=== PATIENT | female | born 1985 | race Caucasian/White ===

== ENCOUNTER 2018-08-03 08:24 | Emergency (ER) | payer OTHER ==
--- NOTE | 2018-08-03 08:35 | EDPHY ---
H & P Time Seen by Provider: 08/03/18 08:33 HPI/ROS: CHIEF COMPLAINT: Dizziness HISTORY OF PRESENT ILLNESS: Patient started having symptoms 2 days ago when she was sitting on a piano bench. She started feeling that it was"like being on a ship"with a sensation of movement and she sat there until it went away. She had 3-4 episodes yesterday and then 1 last night. Each episode lasted for minutes and she was able to remain still and it resolved. Not associated with nausea or vomiting or visual symptoms or neck pain or headache. Symptoms moderate at the time but not present currently. Not definitely better worse with movement. She also describes an intermittent chest tightness over the past 2 weeks which is mobile, sometimes left, symptoms right, sometimes in the center. Lasts for minutes and is not exertional, not pleuritic, not associated with cough or hemoptysis or fever or chills or leg swelling. REVIEW OF SYSTEMS: Eye: Yesterday she had an episode of floaters in her eye when walking the dog but no double vision and no blurry vision today. ENT: no sore throat or earache or decreased hearing Cardiac: HPI Pulmonary: no cough or SOB Abdomen: no vomiting, diarrhea, abdominal pain Musculoskeletal: no back pain or neck pain Skin: no rash Neuro: no headache Constitutional: no fever : no urinary symptoms A comprehensive 10 point review of systems is otherwise negative aside from elements mentioned in the history of present illness. PAST MEDICAL HISTORY: IUD, no hormone use, no recent surgery. Family history: Negative for venous thromboembolism or coronary artery disease. Social history: Tobacco smoker. No drugs. Recent travel to [place] by car a week and half ago. General Appearance: Alert and conversant, cooperative. Eyes: No scleral icterus. Pupils equal reactive extraocular motion intact. ENT, Mouth: Normal mucous membranes. Normal tympanic membranes. Respiratory: Normal respiratory effort, breath sounds equal, lungs are clear to auscultation. Cardiovascular: Regular rate and rhythm. No carotid bruit. Gastrointestinal: Abdomen is soft and non tender. Neurological: Alert, face symmetric, normal motor and sensory in extremities. Ambulatory without ataxia. [id number] normal bilaterally and no pronator drift, fluent speech. Skin: Warm and dry, no rashes. Musculoskeletal: No peripheral edema. No calf tenderness. Symmetric. Psychiatric: Not agitated. Emergency Department course/MDM: PERC negative for pulmonary embolism. Much more likely to be peripheral vertigo than central. Normal neurologic examination. Differential for vertigo considered including but not limited to vascular dissection, cerebellar stroke, demyelinating disease, peripheral. Differential diagnosis considered for chest pain including but not limited to myocardial ischemia, aortic dissection, pericarditis, pulmonary embolus, chest wall pain, pleural inflammation and pulmonary infectious causes. Symptoms are not present in the ED evaluation. Patient is reassured will follow up with her primary care doctor if still symptomatic next week. Smoking Status: Current some day smoker Constitutional: Initial Vital Signs Temperature (C) 37 C 08/03/18 08:30 Heart Rate 70 08/03/18 08:30 Respiratory Rate 16 08/03/18 08:30 Blood Pressure 121/86 H 08/03/18 08:30 O2 Sat (%) 99 08/03/18 08:30 O2 Delivery Mode Room Air Allergies/Adverse Reactions: No Known Allergies Allergy (Unverified 08/03/18 08:30) Home Medications: Medication Instructions Recorded NK [No Known Home Meds] 08/03/18 Medical Decision Making - Diagnostics EKG Interpretation: 12-lead EKG interpreted by me; official reading is in computer system. My interpretation is sinus rhythm, no ischemic changes, normal intervals. Departure - Departure Disposition: Home, Routine, Self-Care Clinical Impression: Vertigo Chest pain Qualifiers: Chest pain type: unspecified Qualified Code(s): R07.9 - Chest pain, unspecified Condition: Good Instructions: Chest Pain (ED), Vertigo (ED) Additional Instructions: Follow-up with your primary care doctor next week if you still have symptoms. Please return to the ER if you are worse. Referrals: Gurvinder Washington MD [Primary Care Provider] - As per Instructions
[2018-08-03 08:44] VITALS: BP 112/78
--- NOTE | 2018-08-03 09:13 | CPEKG ---
Test Reason : OPEN Blood Pressure : / mmHG Vent. Rate : 057 BPM Atrial Rate : 056 BPM P-R Int : 146 ms QRS Dur : 084 ms QT Int : 425 ms P-R-T Axes : 074 073 060 degrees QTc Int : 414 ms Sinus rhythm Confirmed by Abhishek Neff ([id number]) on 08/03/2018 9:13:05 AM Referred By: Confirmed By:Abhishek Neff
== END 2018-08-03 09:11 | disposition home or self-care (01) ==
DX: R42 Dizziness and giddiness (principal); R07.9 Chest pain, unspecified; F17.200 Nicotine dependence, unspecified, uncomplicated